=== PATIENT | female | born 1970 | race Caucasian/White ===

== ENCOUNTER 2025-03-05 07:54 | Emergency (ER) | payer OTHER ==
[~2025-03-05] VITALS: Ht 160 cm; Wt 78.0 kg
[2025-03-05 07:57] VITALS: O2SAT 99
[2025-03-05] MEDS: ACETAMINOPHEN 325MG TABLET PO ONE (09:40)
[2025-03-05] MEDS: KETOROLAC 30MG/ML VIAL IM ONE (09:40)
[2025-03-05] MEDS ORDERED: NAPR-681 MT (09:48)
[2025-03-05 09:57] VITALS: BP 137/70; PULSE 81; RESP 18; TEMP 36.7; O2SAT 99
== END 2025-03-05 10:03 | disposition home or self-care (01) ==
LOC: ER 08:04
DX: S49.92XA Unspecified injury of left shoulder and upper arm, initial encounter (principal); E11.9 Type 2 diabetes mellitus without complications; Z79.899 Other long term (current) drug therapy; V89.2XXA Person injured in unspecified motor-vehicle accident, traffic, initial encounter; Y93.89 Activity, other specified; Y92.89 Other specified places as the place of occurrence of the external cause; Y99.8 Other external cause status
CPT/HCPCS: 73030; 96372; 99283; J1885; Z7610 ×2